=== PATIENT | female | born 1995 | race Hispanic/Latino ===

== ENCOUNTER 2019-12-28 07:59 | Emergency (ER) | payer OTHER ==
[2019-12-28] MEDS ORDERED: Acetaminophen 500 MG TAB ONE (08:39)
[2019-12-28] MEDS ORDERED: Ondansetron ODT 4 MG TAB ONE (08:39)
[2019-12-28] MEDS ORDERED: Hyoscyamine Sulfate SL 0.125 mg Tablet ONE (08:39)
[2019-12-28 18:16] LABS: SARS-CoV-2 MS2 Positive; SARS-CoV-2 N Gene Negative; SARS-CoV-2 S Gene Negative; SARS-CoV-2 by NAA Not Detected (NotDetected); SARS-CoV-2 orf1ab Negative
== END 2019-12-28 08:45 | disposition home or self-care (01) ==
LOC: BURERS 07:59
DX: K52.9 Noninfective gastroenteritis and colitis, unspecified (principal); F41.9 Anxiety disorder, unspecified; F17.210 Nicotine dependence, cigarettes, uncomplicated; Z20.828 Contact with and (suspected) exposure to other viral communicable diseases
CPT/HCPCS: 87635; 99284; Q0162; U0003

== ENCOUNTER 2020-01-27 20:10 | Emergency (ER) | payer SELFPAY ==
[2020-01-27] MEDS ORDERED: Dexamethasone 4 mg/ml Vial ONE (20:53)
[2020-01-27] MEDS ORDERED: Dexamethasone 4 MG TAB ONE (20:54)
[2020-01-28 17:56] LABS: SARS-CoV-2 MS2 Positive; SARS-CoV-2 N Gene Negative; SARS-CoV-2 S Gene Negative; SARS-CoV-2 by NAA Not Detected (NotDetected); SARS-CoV-2 orf1ab Negative
== END 2020-01-27 21:00 | disposition home or self-care (01) ==
LOC: BURERS 20:10
DX: B34.9 Viral infection, unspecified (principal); Z20.828 Contact with and (suspected) exposure to other viral communicable diseases
CPT/HCPCS: 87635; 99283; J1100; J8540; U0003

== ENCOUNTER 2020-02-12 16:15 | Emergency (ER) | payer SELFPAY ==
[2020-02-13 03:09] LABS: SARS-CoV-2 MS2 Positive; SARS-CoV-2 N Gene Negative; SARS-CoV-2 S Gene Negative; SARS-CoV-2 by NAA Not Detected (NotDetected); SARS-CoV-2 orf1ab Negative
== END 2020-02-12 17:36 | disposition home or self-care (01) ==
LOC: BURERS 16:15
DX: Z20.828 Contact with and (suspected) exposure to other viral communicable diseases (principal); F17.210 Nicotine dependence, cigarettes, uncomplicated; F41.9 Anxiety disorder, unspecified
CPT/HCPCS: 87635; 99283; U0003

== ENCOUNTER 2020-02-19 13:42 | Emergency (ER) | payer SELFPAY ==
[2020-02-20 03:05] LABS: SARS-CoV-2 MS2 Positive; SARS-CoV-2 N Gene Negative; SARS-CoV-2 S Gene Negative; SARS-CoV-2 by NAA Not Detected (NotDetected); SARS-CoV-2 orf1ab Negative
== END 2020-02-19 14:15 | disposition home or self-care (01) ==
LOC: BURERS 13:42
DX: Z20.828 Contact with and (suspected) exposure to other viral communicable diseases (principal); F17.210 Nicotine dependence, cigarettes, uncomplicated
CPT/HCPCS: 87635; 99283; U0003